=== PATIENT | male | born 1985 | race Caucasian/White ===

== ENCOUNTER 2023-05-24 23:09 | Inpatient (IN) | payer OTHER ==
[~2023-05-24] VITALS: Ht 172.7 cm; Wt 81.2 kg
[2023-05-24] MEDS ORDERED: PROPOFOL 1,000 MG/100 ML VIAL As Ordered ONE (23:31)
[2023-05-24] MEDS: UNRESOLVED CLARIFICATION ENTRY XX STA (23:35)
[2023-05-24] MEDS: propofoL 1,000 MG in IV 1 EA IV SCH (23:42)
[2023-05-24] MEDS: ETOMIDATE INJ 20MG/10ML VIAL IV STA (23:42)
[2023-05-24] MEDS: ROCURONIUM BROMIDE 50MG/5ML VIAL IV SCH (23:43)
[2023-05-24 23:57] LABS: ABG BASE EXCESS -15.9 (-2.0-2.0); ABG HCO3 15.6 MMOL/L (22.0-26.0); ABG O2 SATURATION 97.5 % (95.0-99.0); ABG PARTIAL PRESSURE O2 130.2 mmHg (75.0-100.0); ABG STANDARD HCO3 12.9 MMOL/L. (22.0-26.0); ABG TOTAL CO2 17.4 MMOL/L (22.0-29.0)
[2023-05-25 00:04] LABS: ABG pH (ARTERIAL) 7.033 UNITS (7.350-7.450)
[2023-05-25 00:18] LABS: BASO # 0.1 10^3/uL (0.0-0.2); BASO % 0.8 % (0.0-1.0); EOS # 0.1 10^3/uL (0.0-0.5); EOS % 0.8 % (0.0-3.0); HEMATOCRIT 51.2 % (42.0-52.0); HEMOGLOBIN 15.9 g/dl (13.5-17.5); LYMPH # 3.7 10^3/uL (1.5-5.0); LYMPH % 48.7 % (24.0-44.0); MEAN CORPUSCULAR HEMOGLOBIN 29.2 pg (27.0-33.0); MEAN CORPUSCULAR HGB CONC 31.1 g/dl (32.0-36.5); MEAN CORPUSCULAR VOLUME 94.1 fl (80.0-96.0); MONO # 0.2 10^3/uL (0.0-0.8); MONO % 2.5 % (2.0-8.0); NEUTROPHILS # 3.4 10^3/uL (1.5-8.5); NEUTROPHILS % 45.4 % (36.0-66.0); PLATELET COUNT, AUTOMATED 261 10^3/uL (150-450); RED BLOOD COUNT 5.44 10^6/uL (4.30-6.10); WHITE BLOOD COUNT 7.6 10^3/uL (4.0-10.0)
[2023-05-25 00:20] LABS: ETHYL ALCOHOL (ETHANOL) 0.005 % (0.000-0.010)
[2023-05-25 00:22] LABS: ALBUMIN 4.3 G/DL (3.2-5.2); ALKALINE PHOSPHATASE 110 U/L (46-116); ALT/SGPT 140 U/L (7.0-40); AST/SGOT 294 U/L (<34); BILIRUBIN,DIRECT 0.2 MG/DL (<0.4); BILIRUBIN,TOTAL 0.4 MG/DL (0.3-1.2); BLOOD UREA NITROGEN 22 MG/DL (9-23); CALCIUM LEVEL 10.9 MG/DL (8.5-10.1); CARBON DIOXIDE LEVEL 21 MMOL/L (20-31); CHLORIDE LEVEL 99 MMOL/L (98-107); CREATININE FOR GFR 1.66 MG/DL (0.70-1.30); GLOMERULAR FILTRATION RATE 49.9 (>60); GLUCOSE, FASTING 115 MG/DL (60-100); POTASSIUM SERUM 5.2 MMOL/L (3.5-5.1); SALICYLATE LEVEL < 3.0 MG/DL (<30); SODIUM LEVEL 143 MMOL/L (136-145); TOTAL PROTEIN 8.2 G/DL (5.7-8.2)
[2023-05-25 00:24] LABS: THYROID STIMULATING HORMONE 1.978 uIU/ML (0.55-4.78)
[2023-05-25 00:39] LABS: CPK CREATINE PHOSPHOKINASE 2580 U/L (46-171)
[2023-05-25 00:49] LABS: AMPHETAMINES LEVEL URINE NEGATIVE (NEGATIVE); BARBITURATES URINE NEGATIVE (NEGATIVE); CANNABINOIDS URINE NEGATIVE (NEGATIVE); METHADONE URINE NEGATIVE (NEGATIVE); OPIATES URINE NEGATIVE (NEGATIVE); PHENCYCLIDINE URINE NEGATIVE (NEGATIVE)
[2023-05-25 01:00] VITALS: O2SAT 99
[2023-05-25] MEDS: SODIUM BICARBONATE 8.4% INJ 50ML SYRINGE IV STA (01:00)
[2023-05-25 01:11] LABS: BENZODIAZEPINES URINE POSITIVE (NEGATIVE); COCAINE METABOLITE URINE POSITIVE (NEGATIVE)
[2023-05-25] MEDS: MIDAZOLAM INJ 2MG/2ML VIAL IV STA (01:15)
[2023-05-25] MEDS: NS 2,660 ML in IV 1 EA IV ONE (02:24)
[2023-05-25] MEDS ORDERED: ALBUTEROL SULFATE 2.5MG/0.5ML INH NEB SOLN NEB PRN (04:25)
[2023-05-25] MEDS ORDERED: ACETAMINOPHEN TAB 650MG DOSE (2X325MG) PO PRN (04:25)
[2023-05-25 05:38] VITALS: BP 146/83; TEMP 98.1; O2SAT 99
[2023-05-25] MEDS: HEPARIN SOD (PORCINE) 5000UNITS/ML 1ML VIAL/SYRINGE SC SCH (05:48)
[2023-05-25] MEDS: SODIUM BICARBONATE 150 MEQ in D5W 1,000 ML IV SCH (05:48)
[2023-05-25 05:54] LABS: ABG BASE EXCESS -4.8 (-2.0-2.0); ABG HCO3 21.8 MMOL/L (22.0-26.0); ABG O2 SATURATION 98.3 % (95.0-99.0); ABG PARTIAL PRESSURE CO2 45.6 mmHg (35.0-45.0); ABG PARTIAL PRESSURE O2 126.3 mmHg (75.0-100.0); ABG STANDARD HCO3 20.6 MMOL/L. (22.0-26.0); ABG TOTAL CO2 23.2 MMOL/L (22.0-29.0); ABG pH (ARTERIAL) 7.297 UNITS (7.350-7.450)
[2023-05-25 06:36] LABS: ALBUMIN 3.4 G/DL (3.2-5.2); ALKALINE PHOSPHATASE 67 U/L (46-116); ALT/SGPT 248 U/L (7.0-40); AST/SGOT 596 U/L (<34); BILIRUBIN,TOTAL 0.3 MG/DL (0.3-1.2); BLOOD UREA NITROGEN 27 MG/DL (9-23); CALCIUM LEVEL 7.2 MG/DL (8.5-10.1); CARBON DIOXIDE LEVEL 28 MMOL/L (20-31); CHLORIDE LEVEL 108 MMOL/L (98-107); CREATININE FOR GFR 1.31 MG/DL (0.70-1.30); GLOMERULAR FILTRATION RATE > 60.0 (>60); GLUCOSE, FASTING 64 MG/DL (60-100); PHOSPHORUS LEVEL 4.8 MG/DL (2.5-4.9); POTASSIUM SERUM 4.2 MMOL/L (3.5-5.1); SODIUM LEVEL 145 MMOL/L (136-145); TOTAL PROTEIN 5.9 G/DL (5.7-8.2)
[2023-05-25 08:00] VITALS: BP 129/81; TEMP 99; O2SAT 98
[2023-05-25] MEDS: ACETAMINOPHEN TAB 650MG DOSE (2X325MG) PO ONE (08:40)
[2023-05-25] MEDS: clonazePAM 0.5 MG TAB PO SCH (09:29)
[2023-05-25] MEDS ORDERED: PROHANCE 279.3MG/ML 15ML VIAL As Ordered ONE (11:29)
[2023-05-25 12:27] VITALS: BP 130/81; TEMP 100.4; O2SAT 98
[2023-05-25] MEDS ORDERED: SERO1TAB3 PO (14:16)
[2023-05-25] MEDS ORDERED: CLON1TAB17 PO (14:16)
[2023-05-25] MEDS ORDERED: MELA5TAB7 PO (14:16)
[2023-05-25] MEDS ORDERED: HOME MED LIST COMPLETE! XX SCH (14:20)
[2023-05-25 15:17] LABS: C REACTIVE PROTEIN QUANTITATIV 4.3 MG/DL (<1.0)
[2023-05-25 15:29] LABS: PROCALCITONIN 10.5 ng/ml
[2023-05-25 16:00] VITALS: BP 138/98; TEMP 100.4; O2SAT 98
[2023-05-25] MEDS: MORPHINE 2 MG/ML 1ML VIAL IV ONE (16:09)
[2023-05-25] MEDS: LIDOCAINE 5% (LIDODERM) PATCH TD SCH (16:12)
[2023-05-25] MEDS: HYDROMORPHONE HCL 0.5 MG/ 0.5 ML SYRINGE IV PRN ×2 (16:48→23:30)
[2023-05-25 20:00] VITALS: BP 135/85; TEMP 98.2; O2SAT 96
[2023-05-25] MEDS: AMPICILLIN SOD/SULBACTAM SOD 3 GM in D5W MINI-BAG PLUS 100 ML IV SCH (21:09)
[2023-05-25] MEDS: HYDROMORPHONE HCL 0.5 MG/ 0.5 ML SYRINGE IV ONE (21:09)
[2023-05-25 22:21] LABS: BLOOD UREA NITROGEN 14 MG/DL (9-23); CALCIUM LEVEL 6.4 MG/DL (8.5-10.1); CARBON DIOXIDE LEVEL 38 MMOL/L (20-31); CHLORIDE LEVEL 100 MMOL/L (98-107); CREATININE FOR GFR 0.91 MG/DL (0.70-1.30); GLOMERULAR FILTRATION RATE > 60.0 (>60); GLUCOSE, FASTING 133 MG/DL (60-100); POTASSIUM SERUM 2.9 MMOL/L (3.5-5.1); SODIUM LEVEL 140 MMOL/L (136-145)
[2023-05-25] MEDS: KCL 10MEQ/100ML SWI (KRUN) 10 MEQ in IV 1 EA IV SCH (23:17)
[2023-05-25] MEDS: POTASSIUM CHLORIDE 10MEQ SR TABLET PO ONE (23:17)
[2023-05-26] VITALS (8 sets, daily range): BP systolic 120–137; BP diastolic 75–92; TEMP 98.2–98.9; O2SAT 85–98
[2023-05-26 04:58] LABS: HEMATOCRIT 38.6 % (42.0-52.0); MEAN CORPUSCULAR HEMOGLOBIN 29.7 pg (27.0-33.0); MEAN CORPUSCULAR HGB CONC 35.2 g/dl (32.0-36.5); MEAN CORPUSCULAR VOLUME 84.3 fl (80.0-96.0); PLATELET COUNT, AUTOMATED 161 10^3/uL (150-450); RED BLOOD COUNT 4.58 10^6/uL (4.30-6.10); WHITE BLOOD COUNT 10.3 10^3/uL (4.0-10.0)
[2023-05-26 05:05] LABS: HEMOGLOBIN 13.6 g/dl (13.5-17.5)
[2023-05-26 05:40] LABS: ALBUMIN 2.8 G/DL (3.2-5.2); ALKALINE PHOSPHATASE 54 U/L (46-116); ALT/SGPT 401 U/L (7.0-40); AST/SGOT 1185 U/L (<34); BILIRUBIN,TOTAL 0.5 MG/DL (0.3-1.2); BLOOD UREA NITROGEN 10 MG/DL (9-23); CALCIUM LEVEL 6.6 MG/DL (8.5-10.1); CARBON DIOXIDE LEVEL 40 MMOL/L (20-31); CHLORIDE LEVEL 100 MMOL/L (98-107); CPK CREATINE PHOSPHOKINASE 39000.00001 U/L (46-171); CREATININE FOR GFR 0.92 MG/DL (0.70-1.30); GLOMERULAR FILTRATION RATE > 60.0 (>60); GLUCOSE, FASTING 151 MG/DL (60-100); POTASSIUM SERUM 3.1 MMOL/L (3.5-5.1); SODIUM LEVEL 142 MMOL/L (136-145)
[2023-05-26] MEDS: POTASSIUM CHLORIDE 10% LIQ 20MEQ/15ML UDC PO ONE (06:23)
[2023-05-26 07:53] LABS: MAGNESIUM LEVEL 1.5 MG/DL (1.8-2.4)
[2023-05-26] MEDS: KCL 20MEQ in NS 1000ML 1,000 ML IV SCH (09:02)
[2023-05-26] MEDS: fentaNYL 100 MCG/2 ML INJECTION IV ONE ×2 (10:08→11:00)
[2023-05-26 10:26] LABS: INR 1.09; PROTHROMBIN TIME 13.8 SECONDS (12.5-14.5)
[2023-05-26] MEDS: BOOSTRIX VACCINE (TETANUS/DIPHTH/ACEL. PERTUSSIS) 0.5ML SYR IM ONE (16:38)
[2023-05-26] MEDS: POTASSIUM CHLORIDE 10MEQ SR TABLET PO ONE (17:25)
[2023-05-26 19:16] LABS: HIV 1&2 SCREEN NEGATIVE (NEGATIVE)
[2023-05-26 19:24] LABS: HEPATITIS B CORE ANTIBODY IGM NEGATIVE (NEGATIVE); HEPATITIS C VIRUS ABY INDEX < 0.02 INDEX (<0.8)
[2023-05-26 19:29] LABS: CPK CREATINE PHOSPHOKINASE 29676 U/L (46-171)
[2023-05-27 00:02] VITALS: BP 125/74; TEMP 98.3; O2SAT 95
[2023-05-27 01:00] VITALS: BP 118/75; O2SAT 94
[2023-05-27 04:16] VITALS: BP 134/82; TEMP 98.3; O2SAT 96
[2023-05-27] MEDS ORDERED: HYDROMORPHONE HCL 0.5 MG/ 0.5 ML SYRINGE IV PRN (07:20)
[2023-05-27] MEDS ORDERED: ACETAMINOPHEN TAB 650MG DOSE (2X325MG) PO PRN (07:20)
[2023-05-27 08:00] VITALS: BP 133/88; TEMP 98.6; O2SAT 94
[2023-05-27 11:22] LABS: HEMATOCRIT 39.6 % (42.0-52.0); HEMOGLOBIN 13.4 g/dl (13.5-17.5); MEAN CORPUSCULAR HEMOGLOBIN 29.5 pg (27.0-33.0); MEAN CORPUSCULAR HGB CONC 33.8 g/dl (32.0-36.5); PLATELET COUNT, AUTOMATED 154 10^3/uL (150-450); RED BLOOD COUNT 4.55 10^6/uL (4.30-6.10); WHITE BLOOD COUNT 6.9 10^3/uL (4.0-10.0)
[2023-05-27 11:49] LABS: ERYTHROCYTE SEDIMENTATION RATE 19 mm/hr (0-15)
[2023-05-27 11:54] LABS: PROCALCITONIN 1.43 ng/ml
[2023-05-27 12:00] VITALS: BP 136/83; TEMP 99.3; O2SAT 98
[2023-05-27 12:03] LABS: ALBUMIN 2.6 G/DL (3.2-5.2); ALKALINE PHOSPHATASE 49 U/L (46-116); ALT/SGPT 357 U/L (7.0-40); AST/SGOT 836 U/L (<34); BILIRUBIN,TOTAL 0.6 MG/DL (0.3-1.2); BLOOD UREA NITROGEN 6 MG/DL (9-23); CALCIUM LEVEL 7.2 MG/DL (8.5-10.1); CARBON DIOXIDE LEVEL 28 MMOL/L (20-31); CHLORIDE LEVEL 114 MMOL/L (98-107); CPK CREATINE PHOSPHOKINASE 20845 U/L (46-171); CREATININE FOR GFR 0.82 MG/DL (0.70-1.30); GLOMERULAR FILTRATION RATE > 60.0 (>60); GLUCOSE, FASTING 97 MG/DL (60-100); POTASSIUM SERUM 4.3 MMOL/L (3.5-5.1); SODIUM LEVEL 145 MMOL/L (136-145); TOTAL PROTEIN 5.1 G/DL (5.7-8.2)
[2023-05-28 07:07] LABS: HEPATITIS A IgG TOTAL Positive (Negative); HEPATITIS B CORE ANTIBODY IGG Negative (Negative)
== END 2023-05-27 14:52 | disposition left against medical advice (07) | DRG 351 ==
LOC: EDBD 23:09 → M ED 23:09 → M ICU 05-25 04:23 → ENRESERV 05-25 04:42
PROVIDERS: ADMIT Internal Medicine; ATTEND Internal Medicine
PROC: B246ZZZ Ultrasonography of Right and Left Heart (ICD-10-PCS; principal; 2023-05-26)
DX: M62.82 Rhabdomyolysis (principal); G92.8 Other toxic encephalopathy; N17.9 Acute kidney failure, unspecified; E87.4 Mixed disorder of acid-base balance; F14.20 Cocaine dependence, uncomplicated; E87.5 Hyperkalemia; F11.20 Opioid dependence, uncomplicated; F17.200 Nicotine dependence, unspecified, uncomplicated; R50.9 Fever, unspecified; K02.9 Dental caries, unspecified; K04.7 Periapical abscess without sinus; M54.50 Low back pain, unspecified; R00.1 Bradycardia, unspecified; D64.9 Anemia, unspecified; R09.02 Hypoxemia; R41.0 Disorientation, unspecified; Z90.49 Acquired absence of other specified parts of digestive tract; R53.1 Weakness; R74.01 Elevation of levels of liver transaminase levels; Z88.1 Allergy status to other antibiotic agents; Z79.899 Other long term (current) drug therapy